=== PATIENT | male | born 1975 | race Caucasian/White ===

== ENCOUNTER → 2018-07-21 | Outpatient (CLI) | payer OTHER ==
[~2018-07-21] MED LIST: GASTROGRAFIN SOLUTION 30ML (Q9963) As Ordered; ISOVUE-370 76% 100ML VIAL (Q9967) As Ordered
== END ==
LOC: M RAD 09:17
DX: M43.06 Spondylolysis, lumbar region (principal); K42.9 Umbilical hernia without obstruction or gangrene; R10.30 Lower abdominal pain, unspecified
CPT/HCPCS: Q9963